=== PATIENT | male | born 1975 | race Caucasian/White ===

== ENCOUNTER 2022-05-03 11:16 | Day surgery (SDC) | payer OTHER ==
[~2022-05-03] VITALS: Ht 185.4 cm; Wt 129.8 kg
[2022-05-03] VITALS (8 sets, daily range): BP systolic 87–116; BP diastolic 56–82; PULSE 80–99; TEMP 98.1
[2022-05-03] MEDS ORDERED: ZOLOFT 100MG100 MG PO (11:25)
[2022-05-03] MEDS ORDERED: HCTZ12.5TAB PO (11:26)
[2022-05-03] MEDS ORDERED: PRINIVIL40 MG PO (11:26)
[2022-05-03] MEDS ORDERED: ATARAX 25MG25 MG/TAB PO (11:27)
[2022-05-03] MEDS ORDERED: ABILIFY 10MG TA10 MG PO (11:28)
[2022-05-03] MEDS ORDERED: MINIPRESS2 MG PO (11:28)
[2022-05-03 11:57] LABS: HEMATOCRIT 48.8 % (42.0-52.0); HEMOGLOBIN 16.9 g/dl (13.5-18.0); MEAN CELL VOLUME 89 fl (80.0-100.0); MEAN CORPUSCULAR HEMOGLOBIN 31 pg (27-31); MEAN CORPUSCULAR HGB CONC 35 g/dl (33.0-37.0); MEAN PLATELET VOLUME 10.1 fl (7.4-10.4); PLATELET COUNT 209 K/mm3 (130-400); RED BLOOD COUNT 5.49 M/mm3 (4.20-5.60); REDCELL DISTRIBUTION WIDTH-CV 12.3 % (11.5-14.5)
[2022-05-03 12:10] LABS: CALCIUM 9.6 mg/dL (8.4-10.2); CREATININE, serum 1.05 mg/dL (0.72-1.25); POTASSIUM 4.3 mmol/L (3.5-4.5)
[2022-05-03 12:26] LABS: PROTHROMBIN TIME 11.9 SECONDS (9.7-12.8)
[2022-05-03 12:28] LABS: PARTIAL THROMBOPLASTIN TIME 34.9 SECONDS (26.0-37.0)
--- NOTE | 2022-05-03 14:13 | NUR ---
SEE MERGE FOR ALL MEDICATION ADMINISTRATION TIMES, INTRA AND POST SEDATION ASSESSMENTS
--- NOTE | 2022-05-03 14:40 | NUR ---
Pt back to [facility] after [facility]. Pt is awake and alert, TR band to rt wrist, cms intact distal. pt is in sinus rhythm, telemetry employed, pt updated on poc, call light in reach. lunch has been ordered.
--- NOTE | 2022-05-03 17:26 | NUR ---
Pt did well during his recovery. TR band has been deflated with no problem. Site dressed with bandaid, folded 2x2 and coban. cms remains intact distal. I reviewed dc/fu instructions with pt who verbalized understanding. pt refused wheelchair, but I walked out with pt who was ambulatory with steady gait. Pt's son with pt at time of his departure as his recycle driver.
== END 2022-05-03 17:40 | disposition home or self-care (01) ==
LOC: COL.CAR 11:16
PROVIDERS: Internal Medicine Interventional Cardiology
DX: R07.9 Chest pain, unspecified (principal); I10 Essential (primary) hypertension; R94.39 Abnormal result of other cardiovascular function study; I51.7 Cardiomegaly; F17.200 Nicotine dependence, unspecified, uncomplicated
CPT/HCPCS: C1769; J1644; J2250; J3010